=== PATIENT | female | born 1990 | race Caucasian/White ===

== ENCOUNTER 2025-01-23 13:07 | Outpatient (CLI) | payer BC, SELFPAY ==
[2025-01-23 12:33] LABS: HCG Quant, Pregnancy 22926 mIU/mL (1-3)
== END 2025-01-23 13:08 | disposition home or self-care (01) ==
LOC: LBO 13:10
PROVIDERS: Visit Provider Obstetrics & Gynecology
DX: N91.0 Primary amenorrhea (principal)
CPT/HCPCS: 36415; 84702

== ENCOUNTER 2025-02-18 07:09 | Day surgery (SDC) | payer BC, SELFPAY ==
[2025-02-18] VITALS (16 sets, daily range): BP systolic 97–120; BP diastolic 52–74; PULSE 47–84; RESP 10–31; TEMP 36.5–36.8; O2SAT 98–100; BMI 21.7
[2025-02-18] MEDS: Lactated Ringers 1,000 ML 125 ML IV (07:43)
[2025-02-18] MEDS: DOXYCYCLINE 100 MG in Normal Saline 100 ML IVPB (07:44)
--- NOTE | 2025-02-18 08:09 | HPE_ITS ---
Date of service: 02/18/25 Time of Service: 08:09 Assessment and Plan Assessment and plan (1) Miscarriage: Status: Acute Assessment and plan: Patient has a missed with no bleeding or significant cramping. Nonviable intrauterine gestation. Will proceed to the OR today for dilation and curettage with suction. Risk benefits and alternatives have been discussed at length. Full informed consent was obtained. History of Present Illness History of Present Illness Chief Complaint: Missed Narrative: Patient is a 34-year-old female 1 para 0 who had an early confirmed by quantitative hCGs with serial ultrasounds confirming nonviable int rauterine gestation with gestational sac only, no cardiac activity. In light of this, after 1 week of watchful waiting, she opted for surgical intervention. The risk, benefits, and alternatives of dilation curettage with suction were explained to the patient in full informed consent was obtained. She understands the risk of infection, bleeding, injury to surrounding organs, risk of anesthesia. She will be taken the operating suite today. She will have a CBC and type and screen preoperatively. She will have close interval follow-up in the office in 2 weeks for pathology review, and ongoing care plan. Review of Systems All systems reviewed & are unremarkable except as noted in HPI and below Eyes Eyes: Reports as per HPI and Reports system reviewed and no additional complaints, except as documented ENT Ears, Nose, Mouth, and Throat: Reports system reviewed and no additional complaints, except as documented and Reports as per HPI Cardiovascular Cardiovascular: Reports as per HPI, Denies chest pain, Denies irregular heart rhythm and Denies dyspnea Respiratory Respiratory: Reports system reviewed and no additional complaints, except as documented, Denies cough and Denies dyspnea Gastrointestinal Gastrointestinal: Reports as per HPI, Denies abdominal pain, Denies diarrhea and Denies nausea Genitourinary Genitourinary: Reports as per HPI Musculoskeletal Musculoskeletal: Reports system reviewed and no additional complaints, except as documented and Reports as per HPI Integumentary/Breasts Skin/Breast: Reports system reviewed and no additional complaints, except as documented Neurologic Neurologic: Reports system reviewed and no additional complaints, except as documented Psychiatric Psychiatric: Reports system reviewed and no additional complaints, except as documented Endocrine Endocrine: Reports system reviewed and no additional complaints, except as documented Hematologic/Lymphatic Hematologic/Lymphatic: Reports system reviewed and no additional complaints, except as documented PFSH All Active Problems (Updated 02/18/25 @ 08:11 by Patti De León DO) Miscarriage (Acute) Abnormal ultrasound (Acute) Elevated serum hCG (Acute) Delayed menses (Acute) Medical History Hypermobility syndrome Surgical History Hx of wisdom tooth extraction Social History Smoking/Tobacco Use Status: Never Smoking risk assessment performed?: Yes Alcohol Intake: former Drug use: Never Substance use type: does not use Housing: house Do you feel safe at home: Yes Do you feel safe in your relationship?: Yes History History 1 Para Hx # Term Pregnancies Multiple births Hx # Pregnancies Ectopic pregnancies AB induced Hx Number of Living Children AB spontaneous 1 Past Pregnancies Del. Date GA/Weeks # Preg Succ Route Wgt Sex Labor Lgth Anesth esia Location Prov Complic 02/10/25 6 No Meds Allergies and Home Medications Allergies Allergy/AdvReac Type Severity Reaction Status Date / Time No Known Allergies Allergy Verified 02/18/25 07:33 Home Medications ?Medication ?Instructions ?Recorded ?Confirmed ?Type ondansetron HCl 4 mg tablet 4 mg PO Q6H PRN nausea and 01/27/25 02/18/25 Rx vomiting #20 tabs Exam Const General: cooperative, healthy appearing, comfortable and no acute distress Nutritional Appearance: average body habitus and well nourished Orientation: alert [facility] Head: normal to inspection Ears: hearing grossly normal bilaterally Eyes General: appearance normal, both eyes and all related structures Neck Neck: normal visual inspection Thyroid: thyroid normal, not diffusely enlarged and no masses Resp Effort & Inspection: normal respiratory effort Auscultation: clear to auscultation bilaterally, no rales, no rhonchi and no wheezes Cardio Jugular venous pressure: no JVD Palpation: normal PMI Rate: regular rate Heart Sounds: S1 normal, S2 normal and no murmurs Skin General skin exam: no rashes or lesions noted Extrem General: normal to inspection and no clubbing, cyanosis or edema Psych Appearance: grossly normal Mental Status: mental status grossly normal Speech and Movement: speech and movement normal Mood: congruent mood Affect: normal affect Attitude: cooperative Thought Process: normal Results Last Vital Signs Temp 97.7 F 02/18/25 07:20 Pulse 84 02/18/25 07:20 Resp 16 02/18/25 07:20 BP 120/74 02/18/25 07:20 Pulse Ox 99 02/18/25 07:20 VTE Prohylaxis Risk Level: Low Risk Contraindications: None Prophylaxis: Mechanical Time Spent Time spent with Patient: 40-54 minutes Time was spent: preparing to see the patient(eg.review tests), obtaining and/or reviewing separately otained hiistory, ordering medications,tests, procedures, indepentently interpreting results and counseling the patient
--- NOTE | 2025-02-18 08:16 | ANES.PREOP_ITS ---
General Info Date of Service Date Performed: 02/18/25 Height: 5 ft 11 in Weight: 70.874 kg Body Mass Index (BMI): 21.7 Surgical Procedure: Operation Date: 02/18/25 08:40 Proposed Procedure Side Surgeon p D&C Suction Patti De León DO Pre-Op Diagnosis Post-Op Diagnosis Abnormal ultrasound Abnormal ultrasound Meds Allergies and Home Medications Allergies Allergy/AdvReac Type Severity Reaction Status Date / Time No Known Allergies Allergy Verified 02/18/25 07:33 Home Medication ?Medication ?Instructions ?Recorded ondansetron HCl 4 mg tablet 4 mg PO Q6H PRN nausea and 01/27/25 vomiting #20 tabs Current Visit Medications: Current Medications Generic Name Dose Route Start Last Admin Trade Name Freq PRN Reason Stop Dose Admin Ringer's Solution 1,000 mls @ 125 mls/hr 02/18/25 06:00 02/18/25 07:43 IV 02/18/25 23:59 125 mls/hr INFUSION NANNETTE Administration Doxycycline Hyclate 100 mg/ 100 mls @ 100 mls/hr 02/18/25 06:00 02/18/25 07:44 Sodium Chloride IVPB 02/18/25 16:00 100 mls/hr PREOP NANNETTE Administration Sodium Chloride 0 ml 02/18/25 06:00 Normal Saline Flush 10 Ml Syr IV 02/18/25 23:59 PRN PRN Sodium Chloride 0 ml 02/18/25 06:00 Normal Saline 10 Ml Vial IJ 02/18/25 23:59 DIRECTED PRN Sterile Water 0 ml 02/18/25 06:00 Water,Injection,Sterile 10 Ml Vial IJ 02/18/25 23:59 DIRECTED PRN PFSH Active Problems Active Problems: Problem Status Onset Code Miscarriage Acute O03.9 Abnormal ultrasound Acute R93.89 Elevated serum hCG Acute R79.89 Delayed menses Acute N91.0 Medical History Medical History Hypermobility syndrome Surgical History Surgical History Hx of wisdom tooth extraction Tobacco Smoking/Tobacco Use Status: Never Passive smoking exposure: No Alcohol Alcohol Intake: former Substance Use Substance use: Never Substance use type: does not use Prental History History 1 Para Hx # Term Pregnancies Multiple births Hx # Pregnancies Ectopic pregnancies AB induced Hx Number of Living Children AB spontaneous 1 Past Pregnancies Del. Date GA/Weeks # Preg Succ Route Wgt Sex Labor Lgth Anesth esia Location Prov Complic 02/10/25 6 No Vital Signs and Lab Results Vital Signs Most Recent Vital Signs in EMR: Most Recent Vital Signs Temp Pulse Resp BP Pulse Ox 36.5 C 84 16 120/74 99 02/18/25 07:20 02/18/25 07:20 02/18/25 07:20 02/18/25 07:20 02/18/25 07:20 Lab Results Blood Type / Crossmatch: Antibody Screen Pending Today Complete Blood Count: WBC Pending Today, 08:05 RBC Pending Today, 08:05 Hgb Pending Today, 08:05 Hct Pending Today, 08:05 Plt Count Pending Today, 08:05 Anesthesia Assessment and Plan Anesthesia History Personal History: No History of Anesthesia Complications Family History: No Family History of Anesthesia Complications Exercise Tolerance Exercise Tolerance: Metabolic Equivalents>4 Pertinent Negatives Pertinent Negatives: No Symptoms of GERD Cardiac & Pulmonary Exam Cardiac Exam: Normal S1/S2 Heart Sounds Pulmonary Exam: Clear Bilateral Breath Sounds Implantable Cardiac Device Does patient have a Pacemaker or an ICD?: No Airway Exam Known Difficult Airway: No Mallampati Class: 2 Mouth Opening: Normal (> 3cm) Thyromental Distance: Greater than 3 cm Neck Range of Motion: Full ROM Neck Circumference: Normal Teeth Condition: Normal Dentition ASA Classification ASA Score: ASA 2 Emergency Case?: No NPO Status NPO Status: NPO Clears >2 hours, Solids >8 hours Status Status: Confirmed ( Demise) Anesthesia Plan Resuscitation Status: Full Code Anesthesia Technique: General Anesthesia Airway Planned: LMA Monitors Used: Standard Monitors and SedLine
[2025-02-18 08:21] LABS: Abs Immature Grans 0.01 10^3/uL (0.0-0.06); HCT 35.1 % (36.0-46.0); HGB 11.4 g/dL (11.2-15.7); Immature Grans % 0.3 %; MCH 26.9 pg (27.0-33.0); MCHC 32.5 % (32.0-36.0); MCV 83 fL (80-95); MPV 11.2 fL (8.0-11.0); Platelet Count 141 10^3/uL (130-400); RBC 4.24 10^6/uL (3.93-5.22); RDW 12.8 % (11.7-14.6); RDW-SD 39.2 fL; WBC 3.45 10^3/uL (4.4-10.8)
--- NOTE | 2025-02-18 08:55 | POCSPONT_PTH ---
PATIENT: Liliana Neal LOC: [facility] U#:[id number] AGE/SX: 34/F ROOM: RE02/18/[address]: Patti De León DO : 1990 BED: DIS: 02/18/2025 SPEC #: [id number] RECD: 02/18/25 14:33 STATUS: EDNA RE #: [id number] [place]: 02/18/25 08:[address]: Patti De León DEPT: Surgical Specimen RECD BY: Gely Guillory ENTERED: 02/18/25 15:02 SP TYPE: CHAVEZ SMITH DR: None Tissues: 1 - ,SPONTANEOUS CHROMOSOME ANALYSIS PROFILE Procedures: CHROMOSOME ANALYSIS 15-20 CELLS CHROMOSOME ANALYSIS TISSUE CULTURE Comments: [id number] (CYTOGENETICS CG25- )
--- NOTE | 2025-02-18 09:05 | W.PM.OP ---
Operative Note Operative Note PRE-OP DIAGNOSIS: Missed , blighted ovum. POST-OP DIAGNOSIS: same PROCEDURE: Dilation curettage with suction SURGEON: Patti De León ANESTHESIA TYPE: General LMA/ETT Refer to Anesthesia Record ESTIMATED BLOOD LOSS: 100 PATHOLOGY: other (Products of conception, Fresh for cytogenetics as well.) COMPLICATIONS: None Patient was transported to: PACU Patient's condition: stable Indications: Missed . Nonviable intrauterine gestation Findings: Small amount of tissue returned from suction curettage Procedure Description: After full informed consent was obtained, patient was taken the operating suite with an IV running. She is placed in the supine position and general anesthesia administered via LMA. She was then placed in the modified dorsolithotomy position. She received 100 mg of doxycycline for infection prophylaxis and had pneumatic compression stockings for DVT prophylaxis. She was then placed in modified dorsolithotomy position in [facility] stirrups and prepped and draped in the usual sterile fashion. A timeout was held. On examination, her uterus is midline and mobile and approximately 6 to 8 weeks size. Speculum was inserted in the vaginal vault and an Allis clamp used to grasp and stabilize the anterior lip of the cervix. The cervical os was gently dilated to the point that a 7 Filipino curved suction curette could be passed without difficulty. With appropriate suction pressure, the uterine cavity was gently curetted. Once the suction curette was removed, gentle sharp curettage of the endometrial cavity to the point that the coarse cry of the uterus could be felt in all quadrants. A second pass of the suction curette was then performed for evacuation of the remainder of tissue. Specimen will be sent for pathologic examination including cytogenetics. At this point, the Allis clamp was removed from the anterior lip of the cervix. Uterus was small and involuted. Speculum was removed from the vaginal vault. The patient was returned to the dorsal supine position and awoke from anesthesia without difficulty. She was transported to the postanesthesia care unit for post anesthesia recovery. EBL: 100 mL Pathology: 1. Products of conception, uterine contents, fresh for pathologic examination, and cytogenetics Complications: None apparent Fluids: Crystalloid per anesthesia Findings: Uterus approximately 6 to 8 weeks size, small amount of tissue return. Date of Procedure: 02/18/25
--- NOTE | 2025-02-18 09:50 | W.ANESPOSTOP ---
Postoperative Evaluation Date, Time and Location Date Performed: 02/18/25 Time Performed: 09:50 Patient Location: Day Surgery Unit Vital Signs Most Recent Imported Vital Signs: Most Recent Vital Signs Temp Pulse Resp BP Pulse Ox 36.6 C 79 14 106/58 L 100 02/18/25 09:37 02/18/25 09:37 02/18/25 09:37 02/18/25 09:37 02/18/25 09:37 Pain Score Most Recent Pain Score: Most Recent Pain Score Pain Level 0 02/18/25 09:37 Assessment Mental Status: Awake (Alert & Oriented to Patient Baseline) Airway and Respiratory Function: Patent airway with normal (patient baseline) respiratory exam Cardiovascular Function: Hemodynamically Stable Hydration Status: Adequately Hydrated Nausea & Vomiting: No Nausea or Vomiting Pain: Pt. Denies Any Pain Peripheral Nerve Block: Patient did not receive a nerve block
== END 2025-02-18 10:30 | disposition home or self-care (01) ==
PROVIDERS: Visit Provider Obstetrics & Gynecology
PROC: (CPT 59841; principal; 2025-02-18 08:30)
DX: O02.1 Missed abortion (principal); Z3A.01 Less than 8 weeks gestation of pregnancy
CPT/HCPCS: 59820; 86850; 86900; 86901; 85025; 88233; 88262; J0131; J1100; J1885; J2003; J2405; J2704; J3010